=== PATIENT | male | born 1965 | race Caucasian/White ===

== ENCOUNTER → 2017-12-25 | Outpatient (CLI) | payer BC ==
[~2017-12-25] MED LIST: OXYACE7.5T PO; VALA500 PO
== END | disposition home or self-care (01) ==
LOC: LAB EV 10:09 → LAB SHORT 10:09
DX: N41.9 Inflammatory disease of prostate, unspecified (principal)
CPT/HCPCS: 87077; 87086; 87186

== ENCOUNTER 2020-02-11 07:54 | Day surgery (SDC) | payer BC ==
[~2020-02-11] VITALS: Ht 188 cm; Wt 101.3 kg
[2020-02-11] MEDS ORDERED: ATOR20 PO (08:59)
[2020-02-11] MEDS ORDERED: ASPI81CH PO (09:00)
[2020-02-11] MEDS ORDERED: NITR.4SL SL (09:00)
[2020-02-11] MEDS ORDERED: Nitroglycerin1 EAC3 TOP (09:01)
[2020-02-11] MEDS ORDERED: METO25ER PO (09:03)
--- NOTE | 2020-02-11 09:55 | NUR ---
HERE TO DISCUSS PROCEDURE.
--- NOTE | 2020-02-11 10:07 | NUR ---
5557 DR. CORDON AT THE BEDSIDE AND SPOKE WITH PATIENT, ALL QUESTIONS ANSWERED, ORDERED 325 MG PO ASPIRIN. THIS WAS GIVEN AND DOCUMENTED. PAITENT UP TO THE RESTROOM AND WAITING TO ENTER THE LAB FOR PROCEDURE.
--- NOTE | 2020-02-11 10:21 | NUR ---
TO ROCKET ENGINE TESTER FOR PROCEDURE.
--- NOTE | 2020-02-11 12:35 | NUR ---
2 CC AIR REMOVED FROM TR BAND. NO BLEEDING FROM SITE.
--- NOTE | 2020-02-11 12:53 | NUR ---
remainder oa air removed from TR band. No bleeding at site. Discharge instructions given to patient and with verbal and written understanding.
--- NOTE | 2020-02-11 13:44 | NUR ---
DRESSING FOR DISCHARGE
--- NOTE | 2020-02-11 13:55 | NUR ---
TR BAND REMOVED. NO BLEEDING AT SITE. CLOTH DOT AND IMMOBILIZER APPLIED.
--- NOTE | 2020-02-11 14:05 | NUR ---
IV REMOVED INTACT. 2X2,COBAN AND MANUAL PRESSURE APPLIED
--- NOTE | 2020-02-11 14:15 | NUR ---
DISCHARGED HOME VIA WHEELCHAIR. DRIVING.
== END 2020-02-11 14:15 | disposition home or self-care (01) ==
LOC: MHTC 07:54
PROC: 4A023N7 Measurement of Cardiac Sampling and Pressure, Left Heart, Percutaneous Approach (ICD-10-PCS; principal; 2020-02-11)
PROC: B201YZZ Plain Radiography of Multiple Coronary Arteries using Other Contrast (ICD-10-PCS; principal; 2020-02-11)
PROC: B205YZZ Plain Radiography of Left Heart using Other Contrast (ICD-10-PCS; principal; 2020-02-11)
DX: I25.118 Atherosclerotic heart disease of native coronary artery with other forms of angina pectoris (principal); E78.5 Hyperlipidemia, unspecified; I11.0 Hypertensive heart disease with heart failure; I50.9 Heart failure, unspecified; Z79.899 Other long term (current) drug therapy; Z79.82 Long term (current) use of aspirin
CPT/HCPCS: 76937; 93458; 99152; 99153; C1769; C1894; J1644; J2250; J3010; J7030; J7050; Q9967

== ENCOUNTER → 2020-05-11 | Outpatient (CLI) | payer BC ==
[~2020-05-11] MED LIST changes: +ASPI81CH PO; +ATOR20 PO; +ISOSORBIDE MONO30 MG PO; +LOSA25 PO; +METO25ER PO; +NITR.4SL SL; +Nitroglycerin1 EAC3 TOP; +OMEP20ER PO
[2020-05-14 14:09] LABS: CORONAVIRUS (COVID19) CSH-NRL Negative (Negative)
== END | disposition home or self-care (01) ==
LOC: LAB 11:35 → LAB SHORT 11:35
PROVIDERS: Family Medicine
DX: J40 Bronchitis, not specified as acute or chronic (principal); Z20.828 Contact with and (suspected) exposure to other viral communicable diseases
CPT/HCPCS: U0003

== ENCOUNTER 2020-06-03 14:13 | Emergency (ER) | payer BC ==
[~2020-06-03] VITALS: Ht 188 cm; Wt 98.9 kg
[~2020-06-03 14:13] MED LIST changes: -ISOSORBIDE MONO30 MG PO; -LOSA25 PO; -OMEP20ER PO
[2020-06-03 14:50] LABS: BASOPHILS ABSOLUTE AUTO 0.05 K/mm3 (0.00-0.23); BASOPHILS PERCENT AUTO 1 % (0-2); EOSINOPHILS PERCENT AUTO 2 % (0-6); Hematocrit 43.9 % (37.0-53.0); Hemoglobin 14.8 g/dL (13.5-17.5); IMMATURE GRAN ABSOLUTE AUTO 0.01 K/mm3 (0.00-0.10); IMMATURE GRAN PERCENT AUTO 0 % (0-1); LYMPHOCYTES ABSOLUTE AUTO 2.18 K/mm3 (0.84-5.20); LYMPHOCYTES PERCENT AUTO 26 % (21-46); MONOCYTES ABSOLUTE AUTO 0.71 K/mm3 (0.16-1.47); MONOCYTES PERCENT AUTO 9 % (4-13); Mean Corpuscular HGB 30.6 pg (26.0-34.0); Mean Corpuscular HGB Conc 33.7 g/dL (31.5-36.5); Mean Corpuscular Volume 91 fL (80-100); Mean Platelet Volume 10.2 fL (9.1-12.4); NEUTROPHILS ABSOLUTE AUTO 5.11 K/mm3 (1.96-9.15); NEUTROPHILS PERCENT AUTO 62 % (41-73); Platelet Count 178 K/mm3 (150-400); RDW Coefficient Variation 11.7 % (11.7-14.2); RDW Standard Deviation 38.8 fL (35.1-46.3); Red Blood Cell Count 4.84 M/mm3 (4.30-5.90); White Blood Cell Count 8.26 K/mm3 (4.00-11.30)
[2020-06-03 15:27] LABS: Alanine Aminotransfer (ALT/SGP 40 U/L (12-78); Albumin/Globulin Ratio 1.2 (0.8-1.8); Alk Phos 78 U/L (50-136); Anion Gap 5 mmol/L (6-16); Aspartate Aminotrans (AST/SGOT 34 U/L (12-37); Bilirubin, Total 0.5 mg/dL (0.1-1.0); Blood Urea Nitrogen 12 mg/dL (8-24); CO2, Blood 27 mmol/L (21-32); Calcium, Blood 8.8 mg/dL (8.5-10.1); Chloride, Blood 110 mmol/L (98-108); Globulin, Blood 3.3 g/dL (2.2-4.0); Glomerular Filtration Rate >60 (60-); Glucose, Blood 88 mg/dL (70-99); Potassium, Blood 3.7 mmol/L (3.5-5.5); Sodium, Blood 142 mmol/L (136-145); Total Protein, Blood 7.3 g/dL (6.4-8.2); Troponin I <0.015 ng/mL (0.000-0.040)
[2020-06-03] MEDS ORDERED: LOSA25 PO (16:23)
[2020-06-03] MEDS ORDERED: OMEP20ER PO (16:23)
[2020-06-03] MEDS ORDERED: ISOSORBIDE MONO30 MG PO (16:24)
== END 2020-06-03 16:49 | disposition home or self-care (01) ==
LOC: ER 14:13
PROVIDERS: Emergency Medicine
DX: R07.9 Chest pain, unspecified (principal); R06.02 Shortness of breath; I10 Essential (primary) hypertension; E78.5 Hyperlipidemia, unspecified; K21.9 Gastro-esophageal reflux disease without esophagitis; Z79.899 Other long term (current) drug therapy
CPT/HCPCS: 36415; 71045; 80053; 84484; 85025; 93005; 93010; 99284-25

== ENCOUNTER → 2021-03-05 | Outpatient (CLI) | payer BC ==
[~2021-03-05] MED LIST changes: +ASPIR 8181 M1; +DISO100ER; +ISOSORBIDE MONO30 MG PO; +LOSA25 PO; +MELA3; +OMEP20ER PO; +SPIR25; +TAMS.4ER
[2021-03-05 15:06] LABS: BASOPHILS ABSOLUTE AUTO 0.04 K/mm3 (0.00-0.23); BASOPHILS PERCENT AUTO 1 % (0-2); EOSINOPHILS PERCENT AUTO 1 % (0-6); Hemoglobin 14.9 g/dL (13.5-17.5); IMMATURE GRAN ABSOLUTE AUTO 0.03 K/mm3 (0.00-0.10); IMMATURE GRAN PERCENT AUTO 0 % (0-1); LYMPHOCYTES ABSOLUTE AUTO 2.49 K/mm3 (0.84-5.20); LYMPHOCYTES PERCENT AUTO 30 % (21-46); MONOCYTES ABSOLUTE AUTO 0.86 K/mm3 (0.16-1.47); MONOCYTES PERCENT AUTO 10 % (4-13); Mean Corpuscular HGB 28.9 pg (26.0-34.0); Mean Corpuscular HGB Conc 33.9 g/dL (31.5-36.5); Mean Corpuscular Volume 85 fL (80-100); Mean Platelet Volume 10.2 fL (9.1-12.4); NEUTROPHILS ABSOLUTE AUTO 4.82 K/mm3 (1.96-9.15); NEUTROPHILS PERCENT AUTO 58 % (41-73); Platelet Count 171 K/mm3 (150-400); RDW Coefficient Variation 12.5 % (11.7-14.2); RDW Standard Deviation 38.9 fL (35.1-46.3); Red Blood Cell Count 5.15 M/mm3 (4.30-5.90); White Blood Cell Count 8.34 K/mm3 (4.00-11.30)
[2021-03-05 15:16] LABS: Alanine Aminotransfer (ALT/SGP 42 U/L (12-78); Albumin, Blood 4.4 g/dL (3.4-5.0); Albumin/Globulin Ratio 1.4 (0.8-1.8); Alk Phos 78 U/L (40-126); Anion Gap 8 mmol/L (6-16); Aspartate Aminotrans (AST/SGOT 24 U/L (12-37); Bilirubin, Total 0.5 mg/dL (0.1-1.0); Blood Urea Nitrogen 19 mg/dL (8-24); CO2, Blood 27 mmol/L (21-32); Calcium, Blood 8.9 mg/dL (8.5-10.1); Chloride, Blood 103 mmol/L (98-108); Creatinine, Blood 1.19 mg/dL (0.60-1.20); Globulin, Blood 3.2 g/dL (2.2-4.0); Glomerular Filtration Rate >60 (60-); Glucose, Blood 105 mg/dL (70-99); Potassium, Blood 4.2 mmol/L (3.5-5.5); Sodium, Blood 138 mmol/L (136-145); Total Protein, Blood 7.6 g/dL (6.4-8.2)
== END | disposition home or self-care (01) ==
LOC: LAB SHORT 14:58 → LAB 14:58
PROVIDERS: Physician Assistant Surgical
DX: R07.9 Chest pain, unspecified (principal); R10.9 Unspecified abdominal pain
CPT/HCPCS: 80053; 82150; 84484; 85025; 85379

== ENCOUNTER 2021-04-16 10:01 | Inpatient (IN) | payer BC ==
[~2021-04-16] VITALS: Ht 188 cm; Wt 93.8 kg
[~2021-04-16 10:01] MED LIST changes: -DISO150 PO
[2021-04-16 10:15] LABS: Calcium, Ionized (POC) 1.11 mmol/L (1.10-1.46); Chloride (POC) 103 mmol/L (98-108); Creatinine (POC) 1.2 mg/dL (0.8-1.3); Glucose (ISTAT POC) 104 mg/dL (70-99); Potassium (POC) 4.1 mmol/L (3.5-5.5); Sodium (POC) 138 mmol/L (135-148); Total CO2 (POC) 23 mmol/L (21-32)
[2021-04-16 10:26] LABS: BASOPHILS ABSOLUTE AUTO 0.03 K/mm3 (0.00-0.23); BASOPHILS PERCENT AUTO 0 % (0-2); EOSINOPHILS ABSOLUTE AUTO 0.15 K/mm3 (0.00-0.68); EOSINOPHILS PERCENT AUTO 2 % (0-6); Hematocrit 46.2 % (37.0-53.0); Hemoglobin 15.3 g/dL (13.5-17.5); IMMATURE GRAN ABSOLUTE AUTO 0.01 K/mm3 (0.00-0.10); IMMATURE GRAN PERCENT AUTO 0 % (0-1); LYMPHOCYTES ABSOLUTE AUTO 2.58 K/mm3 (0.84-5.20); LYMPHOCYTES PERCENT AUTO 33 % (21-46); MONOCYTES ABSOLUTE AUTO 0.75 K/mm3 (0.16-1.47); MONOCYTES PERCENT AUTO 10 % (4-13); Mean Corpuscular HGB 29.3 pg (26.0-34.0); Mean Corpuscular HGB Conc 33.1 g/dL (31.5-36.5); Mean Corpuscular Volume 88 fL (80-100); Mean Platelet Volume 9.9 fL (9.1-12.4); NEUTROPHILS ABSOLUTE AUTO 4.31 K/mm3 (1.96-9.15); NEUTROPHILS PERCENT AUTO 55 % (41-73); Platelet Count 171 K/mm3 (150-400); RDW Coefficient Variation 13.5 % (11.7-14.2); RDW Standard Deviation 43.9 fL (35.1-46.3); Red Blood Cell Count 5.23 M/mm3 (4.30-5.90); White Blood Cell Count 7.83 K/mm3 (4.00-11.30)
[2021-04-16 10:46] LABS: Alanine Aminotransfer (ALT/SGP 38 U/L (12-78); Albumin, Blood 3.5 g/dL (3.4-5.0); Albumin/Globulin Ratio 0.9 (0.8-1.8); Alk Phos 68 U/L (50-136); Anion Gap 4 mmol/L (6-16); Aspartate Aminotrans (AST/SGOT 27 U/L (12-37); Bilirubin, Total 0.4 mg/dL (0.1-1.0); Blood Urea Nitrogen 13 mg/dL (8-24); Bun/Creatinine Ratio 11.3 (12.0-20.0); CO2, Blood 26 mmol/L (21-32); Calcium, Blood 9.1 mg/dL (8.5-10.1); Chloride, Blood 107 mmol/L (98-108); Creatinine, Blood 1.15 mg/dL (0.60-1.20); Globulin, Blood 3.8 g/dL (2.2-4.0); Glomerular Filtration Rate >60 (60-); Glucose, Blood 102 mg/dL (70-99); Potassium, Blood 4.1 mmol/L (3.5-5.5); Sodium, Blood 137 mmol/L (136-145); Total Protein, Blood 7.3 g/dL (6.4-8.2); Troponin I 0.101 ng/mL (0.000-0.040)
[2021-04-16 11:48] LABS: International Normalized Ratio 1.08; Prothrombin Time Results 11.3 Sec (9.7-11.5)
--- NOTE | 2021-04-16 17:34 | NUR ---
ECHOCARDIOGRAM COMPLETE
--- NOTE | 2021-04-16 18:42 | NUR ---
PT ARRIVED TO ROOM AOX4 AND COOPERATIVE OF CARE. PT INDEPENDENT IN ROOM AND CAN CALL APPROPRIATELY. NO DISTRESS AT THIS TIME WILL CONTINUE TO MONITOR. PT DENIES CHEST PAIN.
--- NOTE | 2021-04-17 00:44 | NUR ---
PT LATEST PTT IS 84.6 CALLED PHARMACY AND VERIFIED IF RATE CHANGE WAS NEEDED FOR HEPARIN GTT. SPOKE TO ERIN @ 2199 WAS ADV IF THE ORDER WAS NOT REFLECTING A RATE CHANGE TO CONTINUE WITH CURRENT RATE. PT IS ADMITTED WITH COMPLAINTS OF CHEST PAIN, HE IS ON HEPARIN GTT, NO SHIPPING PROCESSOR ORDER IN PLACE. OBTAINED ORDER FROM DR. MANCILLA @ 2204 VIA PHONE FOR CARDIAC MONITORING.
[2021-04-17 02:18] LABS: BASOPHILS ABSOLUTE AUTO 0.04 K/mm3 (0.00-0.23); BASOPHILS PERCENT AUTO 1 % (0-2); EOSINOPHILS ABSOLUTE AUTO 0.17 K/mm3 (0.00-0.68); EOSINOPHILS PERCENT AUTO 2 % (0-6); Hematocrit 43.7 % (37.0-53.0); Hemoglobin 14.6 g/dL (13.5-17.5); IMMATURE GRAN ABSOLUTE AUTO 0.03 K/mm3 (0.00-0.10); IMMATURE GRAN PERCENT AUTO 0 % (0-1); LYMPHOCYTES ABSOLUTE AUTO 2.71 K/mm3 (0.84-5.20); LYMPHOCYTES PERCENT AUTO 34 % (21-46); MONOCYTES ABSOLUTE AUTO 0.74 K/mm3 (0.16-1.47); MONOCYTES PERCENT AUTO 9 % (4-13); Mean Corpuscular HGB 29.6 pg (26.0-34.0); Mean Corpuscular HGB Conc 33.4 g/dL (31.5-36.5); Mean Corpuscular Volume 89 fL (80-100); NEUTROPHILS ABSOLUTE AUTO 4.25 K/mm3 (1.96-9.15); NEUTROPHILS PERCENT AUTO 54 % (41-73); Platelet Count 150 K/mm3 (150-400); RDW Coefficient Variation 13.5 % (11.7-14.2); RDW Standard Deviation 43.8 fL (35.1-46.3); Red Blood Cell Count 4.94 M/mm3 (4.30-5.90); White Blood Cell Count 7.94 K/mm3 (4.00-11.30)
[2021-04-17 02:33] LABS: Anion Gap 2 mmol/L (6-16); Blood Urea Nitrogen 15 mg/dL (8-24); CHOL/HDL RATIO 4.5; CO2, Blood 31 mmol/L (21-32); Calcium, Blood 8.7 mg/dL (8.5-10.1); Chloride, Blood 107 mmol/L (98-108); Cholesterol 143 mg/dL (50-200); Creatinine, Blood 1.36 mg/dL (0.60-1.20); Glomerular Filtration Rate 54 (60-); Glucose, Blood 98 mg/dL (70-99); HDL Cholesterol 32 mg/dL (>39); LDL/HDL RATIO 2.9; Low Density Lipoprotein Chol 92 mg/dL (0-110); Sodium, Blood 140 mmol/L (136-145); Triglycerides 93 mg/dL (30-160); Troponin I 0.063 ng/mL (0.000-0.040); Very Low Density Lipoprot Chol 18 mg/dL (6-32)
--- NOTE | 2021-04-17 05:32 | NUR ---
VSS, A+OX4, ABLE TO VERBALIZE NEEDS. PAGED DR. MANCILLA AND OBTAINED ORDER FOR BEDSIDE MONITORING. PT IS IN NS WITH HR IN THE 60'S. COMPLAINS OF MILD CHEST PAIN WITH ACTIVITY. HEPARIN GTT INFUSING @ 13 UNITS/KG/HR, 24.4 ML/HR. PER PHARMACY NO CHANGES MADE TO RATE. LAST TROPONIN 0.063. NO ACUTE ISSUES IDENTIFIED.CALL LIGHT IN REACH, WILL CONTINUE TO MONITOR PT UNTIL REPORT IS GIVE TO DAY NURSE
--- NOTE | 2021-04-17 07:24 | NUR ---
PLATE EMBOSSER CALLED SAYING PT HAD 5 BEATS OF V-TACH. PER PT HE FELT LIKE HIS HEART WAS RACING, COMPLAINS OF SHARP PAIN @ A 3 ON THE NUMERIC PAIN SCALE. PT IS CURENLTY ON HEPARIN GTT. HE SAYS PAIN IS FELT WITH ACTIVITY. WILL PASS INFO TO DAY NURSE, ASKED PLATE EMBOSSER TO SEND STRIP TO PLACE ON CHART
[2021-04-17] MEDS ORDERED: DISO150 PO (15:30)
--- NOTE | 2021-04-17 17:35 | NUR ---
PATIENT DISCHARGED TO HOME UNACCOMPANIED, HAD DRIVEN HIMSELF TO HOSPITAL. IV SALINE LOCK REMOVED WITHOUT INCIDENT. VERBALIZED UNDERSTANDING OF D/C INSTRUCTIONS. AMBULATED OFF UNIT AT 1557. NO PERSONAL BELONGINGS LEFT BEHIND IN ROOM.
== END 2021-04-17 15:57 | disposition home or self-care (01) | DRG 282 ==
LOC: ER 10:01 → MEDS 11:41
PROVIDERS: Emergency Medicine; Internal Medicine Cardiovascular Disease; Pharmacist; ADMIT Internal Medicine
DX: I42.1 Obstructive hypertrophic cardiomyopathy (principal); I21.A1 Myocardial infarction type 2; E78.5 Hyperlipidemia, unspecified; N40.0 Benign prostatic hyperplasia without lower urinary tract symptoms; Z79.899 Other long term (current) drug therapy; Z79.82 Long term (current) use of aspirin; Z23 Encounter for immunization
CPT/HCPCS: 36415; 71045; 80047; 80048; 80053; 80061; 83880; 84484; 85014; 85025; 85610; 85730; 93005; 93010; 93306; 96365; 96366; 96376; 99285-25; A9270; J1644

== ENCOUNTER → 2021-04-16 | Outpatient (CLI) | payer BC ==
[~2021-04-16] MED LIST changes: +ASPI325EC PO; -ASPIR 8181 M1; -DISO100ER; +DISO100ER PO; +DISO150 PO; -MELA3; +MELA3 PO; -SPIR25; +SPIR25 PO; -TAMS.4ER; +TAMS.4ER PO
[2021-04-16 10:06] LABS: BASOPHILS ABSOLUTE AUTO 0.05 K/mm3 (0.00-0.23); BASOPHILS PERCENT AUTO 1 % (0-2); EOSINOPHILS ABSOLUTE AUTO 0.14 K/mm3 (0.00-0.68); EOSINOPHILS PERCENT AUTO 2 % (0-6); Hematocrit 44.9 % (37.0-53.0); Hemoglobin 15.1 g/dL (13.5-17.5); IMMATURE GRAN ABSOLUTE AUTO 0.03 K/mm3 (0.00-0.10); IMMATURE GRAN PERCENT AUTO 0 % (0-1); LYMPHOCYTES ABSOLUTE AUTO 2.35 K/mm3 (0.84-5.20); LYMPHOCYTES PERCENT AUTO 31 % (21-46); MONOCYTES ABSOLUTE AUTO 0.72 K/mm3 (0.16-1.47); MONOCYTES PERCENT AUTO 10 % (4-13); Mean Corpuscular HGB 29.4 pg (26.0-34.0); Mean Corpuscular HGB Conc 33.6 g/dL (31.5-36.5); Mean Corpuscular Volume 87 fL (80-100); Mean Platelet Volume 10.1 fL (9.1-12.4); NEUTROPHILS ABSOLUTE AUTO 4.26 K/mm3 (1.96-9.15); NEUTROPHILS PERCENT AUTO 56 % (41-73); Platelet Count 167 K/mm3 (150-400); RDW Coefficient Variation 13.5 % (11.7-14.2); RDW Standard Deviation 43.3 fL (35.1-46.3); Red Blood Cell Count 5.14 M/mm3 (4.30-5.90); White Blood Cell Count 7.55 K/mm3 (4.00-11.30)
[2021-04-16 10:30] LABS: Albumin, Blood 3.7 g/dL (3.4-5.0); Albumin/Globulin Ratio 1.1 (0.8-1.8); Bilirubin, Total 0.3 mg/dL (0.1-1.0); Bun/Creatinine Ratio 10.6 (12.0-20.0); Calcium, Blood 8.6 mg/dL (8.5-10.1); Creatinine, Blood 1.32 mg/dL (0.60-1.20); Globulin, Blood 3.3 g/dL (2.2-4.0); Thyroid Stimulating Hormone 2.613 uIU/mL (0.360-4.800); Troponin I 0.137 ng/mL (0.000-0.040)
== END ==
LOC: LAB 10:00 → LAB SHORT 10:00
PROVIDERS: General Practice
DX: I21.3 ST elevation (STEMI) myocardial infarction of unspecified site (principal); R53.83 Other fatigue; R07.9 Chest pain, unspecified
CPT/HCPCS: 80053; 82550; 84443; 84484; 85025; 85379

== ENCOUNTER → 2023-08-07 | Outpatient (CLI) | payer BC ==
[~2023-08-07] MED LIST changes: +DISO150 PO
[2023-08-08 11:57] LABS: Stool Occult Bld Immuno 1 Negative (NEGATIVE)
== END | disposition home or self-care (01) ==
LOC: LAB SHORT 09:40 → LAB 09:40
PROVIDERS: Family Medicine
DX: Z12.11 Encounter for screening for malignant neoplasm of colon (principal)
CPT/HCPCS: G0328

== ENCOUNTER 2025-04-06 19:14 | Emergency (ER) | payer BC ==
[~2025-04-06] VITALS: Ht 188 cm; Wt 95.2 kg
[2025-04-06 19:41] LABS: BASOPHILS ABSOLUTE AUTO 0.05 K/mm3 (0.00-0.23); BASOPHILS PERCENT AUTO 1 % (0-2); EOSINOPHILS ABSOLUTE AUTO 0.13 K/mm3 (0.00-0.68); EOSINOPHILS PERCENT AUTO 1 % (0-6); Hematocrit 47.0 % (37.0-53.0); Hemoglobin 16.0 g/dL (13.5-17.5); IMMATURE GRAN ABSOLUTE AUTO 0.02 K/mm3 (0.00-0.10); IMMATURE GRAN PERCENT AUTO 0 % (0-1); LYMPHOCYTES ABSOLUTE AUTO 2.78 K/mm3 (0.84-5.20); LYMPHOCYTES PERCENT AUTO 30 % (21-46); MONOCYTES ABSOLUTE AUTO 0.78 K/mm3 (0.16-1.47); MONOCYTES PERCENT AUTO 8 % (4-13); Mean Corpuscular HGB Conc 34.0 g/dL (31.5-36.5); Mean Corpuscular Volume 88 fL (80-100); NEUTROPHILS ABSOLUTE AUTO 5.67 K/mm3 (1.96-9.15); NEUTROPHILS PERCENT AUTO 60 % (41-73); NRBC ABSOLUTE 0.00 K/mm3 (0.00-0.02); NRBC Auto 0.0 /100 WBC (0.0-0.2); Platelet Count 207 K/mm3 (150-400); RDW Coefficient Variation 12.0 % (11.7-14.2); RDW Standard Deviation 38.4 fL (35.1-46.3)
[2025-04-06 20:02] LABS: Alanine Aminotransfer (ALT/SGP 30.0 U/L (12-78); Albumin, Blood 4.5 g/dL (3.4-5.0); Albumin/Globulin Ratio 1.3 (0.8-1.8); Anion Gap 10.0 mmol/L (3-11); Aspartate Aminotrans (AST/SGOT 27.0 U/L (12-37); Bilirubin, Total 0.6 mg/dL (0.1-1.0); Blood Urea Nitrogen 16.0 mg/dL (8-24); CO2, Blood 27.0 mmol/L (21-32); Calcium, Blood 9.2 mg/dL (8.5-10.1); Chloride, Blood 102.0 mmol/L (98-108); Creatinine, Blood 1.08 mg/dL (0.60-1.20); Globulin, Blood 3.5 g/dL (2.2-4.0); Glucose, Blood 106.0 mg/dL (70-99); Potassium, Blood 4.1 mmol/L (3.5-5.5); Sodium, Blood 135.0 mmol/L (136-145); Total Protein, Blood 8.0 g/dL (6.4-8.2)
[2025-04-07] VITALS: BP 123/94
== END 2025-04-07 00:10 | disposition home or self-care (01) ==
LOC: ER 19:14
PROVIDERS: Physician Assistant
DX: R07.89 Other chest pain (principal); I25.2 Old myocardial infarction; I42.2 Other hypertrophic cardiomyopathy; I10 Essential (primary) hypertension; E78.5 Hyperlipidemia, unspecified; K21.9 Gastro-esophageal reflux disease without esophagitis; Z79.82 Long term (current) use of aspirin; Z79.899 Other long term (current) drug therapy; Z59.89 Other problems related to housing and economic circumstances
CPT/HCPCS: 71046; 80053; 83690; 84484; 85025; 93005; 93010; 99285-25